=== PATIENT | female | born 1990 | race Caucasian/White ===

== ENCOUNTER 2017-09-14 15:41 | Emergency (ER) | payer OTHER ==
[~2017-09-14] VITALS: Ht 165.1 cm; Wt 63.0 kg
[2017-09-14 18:25] VITALS: BP 110/60
== END 2017-09-14 18:25 | disposition home or self-care (01) | DRG 605 ==
LOC: ED 15:41
PROC: 0HQ1XZZ Repair Face Skin, External Approach (ICD-10-PCS; principal; 2017-09-14)
DX: S01.81XA Laceration without foreign body of other part of head, initial encounter (principal); W30.89XA Contact with other specified agricultural machinery, initial encounter; Y93.I9 Activity, other involving external motion; Y92.89 Other specified places as the place of occurrence of the external cause